=== PATIENT | male | born 1970 | race African-American/Black ===

== ENCOUNTER 2017-02-15 21:03 | Emergency (ER) | payer OTHER ==
[~2017-02-15] VITALS: Ht 172.7 cm; Wt 123.1 kg
[~2017-02-15 21:03] MED LIST: ACYCLOVIR200 MG PO; LOTRISONE15 GM TP; MOBIC7.5 MG PO; MOTRIN800 MG PO; NAPROSYN500 MG PO; PEN-VEE K,VEET500 MG PO; TRAMADOL HCL50 MG PO; VICODIN 5-3001 EACH PO
[2017-02-15 22:06] VITALS: BP 171/110
== END 2017-02-15 22:09 | disposition home or self-care (01) ==
LOC: EME 21:03
DX: A54.9 Gonococcal infection, unspecified (principal)
CPT/HCPCS: 99281; 99284; J0696

== ENCOUNTER 2017-06-29 20:52 | Emergency (ER) | payer OTHER ==
[~2017-06-29] VITALS: Ht 172.7 cm; Wt 125.5 kg
[2017-06-29] MEDS ORDERED: CLEOCIN300 MG PO (22:23)
[2017-06-29] MEDS ORDERED: PERCOCET 5/31 TABLET PO (22:23)
[2017-06-29 23:37] VITALS: BP 136/93
== END 2017-06-29 23:48 | disposition home or self-care (01) ==
LOC: EME 20:52
PROC: 0C95XZZ Drainage of Upper Gingiva, External Approach (ICD-10-PCS; principal; 2017-06-29)
DX: K04.7 Periapical abscess without sinus (principal); I10 Essential (primary) hypertension; F17.200 Nicotine dependence, unspecified, uncomplicated
CPT/HCPCS: 99281; 99284